=== PATIENT | female | born 1975 | race Caucasian/White ===

== ENCOUNTER 2017-10-03 13:29 | Emergency (ER) | payer SELFPAY ==
[2017-10-03 14:05] LABS: BASO # 0.1 10^3/uL (0.0-0.2); BASO % 0.6 % (0.0-1.0); EOS # 0.2 10^3/uL (0.0-0.50); EOS % 2.6 % (0.0-3.0); HEMATOCRIT 27.9 % (36.0-47.0); HEMOGLOBIN 7.9 g/dl (12.0-15.5); IMMATURE GRANULOCYTE % 0.3 % (0-3.0); LYMPH # 2.2 10^3/uL (1.5-4.5); LYMPH % 27.8 % (24.0-44.0); MEAN CORPUSCULAR HGB CONC 28.3 g/dl (32.0-36.5); MEAN CORPUSCULAR VOLUME 67.2 fl (80.0-96.0); MONO # 0.7 10^3/uL (0.0-0.8); MONO % 8.9 % (0.0-5.0); NEUTROPHILS # 4.7 10^3/uL (1.8-7.7); NEUTROPHILS % 59.8 % (36.0-66.0); PLATELET COUNT, AUTOMATED 243 10^3/uL (150-450); RED BLOOD COUNT 4.15 10^6/uL (4.00-5.40); WHITE BLOOD COUNT 7.8 10^3/uL (4.0-10.0)
[2017-10-03] MEDS: NS 500 ML IV (14:06)
[2017-10-03 14:17] LABS: INR 0.96; PROTHROMBIN TIME 12.9 SECONDS (12.1-14.4)
[2017-10-03 14:18] LABS: PARTIAL THROMBOPLASTIN TIME 31.1 SECONDS (25.4-37.6)
[2017-10-03 14:20] LABS: D-DIMER QUANT 305.8 ng/ml (<500)
[2017-10-03 14:31] LABS: ALBUMIN 3.6 GM/DL (3.2-5.2); ALKALINE PHOSPHATASE 43 U/L (45-117); ALT/SGPT 18 U/L (12-78); ANION GAP 8 MEQ/L (8-16); AST/SGOT 13 U/L (7-37); BILIRUBIN,DIRECT < 0.1 MG/DL (0.0-0.2); BILIRUBIN,TOTAL 0.2 MG/DL (0.2-1.0); BLOOD UREA NITROGEN 20 MG/DL (7-18); C REACTIVE PROTEIN QUANTITATIV < 0.30 MG/DL (0.00-0.30); CALCIUM LEVEL 8.4 MG/DL (8.5-10.1); CARBON DIOXIDE LEVEL 23 MEQ/L (21-32); CHLORIDE LEVEL 108 MEQ/L (98-107); CPK CREATINE PHOSPHOKINASE 65 U/L (26-192); CREATININE FOR GFR 0.84 MG/DL (0.55-1.30); GLOMERULAR FILTRATION RATE > 60.0 (>58); GLUCOSE, FASTING 93 MG/DL (70-100); LIPASE 140 U/L (73-393); POTASSIUM SERUM 3.9 MEQ/L (3.5-5.1); SODIUM LEVEL 139 MEQ/L (136-145); TOTAL PROTEIN 7.2 GM/DL (6.4-8.2); TROPONIN I < 0.02 NG/ML (< 0.10)
[2017-10-03 14:36] LABS: CK-MB VALUE MASS < 1.0 NG/ML (<3.6); FREE T4 0.94 NG/DL (0.76-1.46); MB/CK RELATIVE INDEX 1.53 (< OR =4)
[2017-10-03 14:39] LABS: HCG, SERUM QUANTITATIVE < 1.0 MIU/ML
[2017-10-03 16:49] LABS: FERRITIN 2 NG/ML (8-252); IRON (FE) 12 UG/DL (50-170); PERCENT SATURATION 3.1 % (13.2-45.0); TOTAL IRON BINDING CAPACITY 391 UG/DL (250-450)
[2017-10-03 17:04] LABS: IMMEDIATE SPIN CROSSMATCH 1 1
== END 2017-10-03 19:15 | disposition home or self-care (01) ==
LOC: M ED 13:29
DX: D64.9 Anemia, unspecified (principal); N92.0 Excessive and frequent menstruation with regular cycle; R00.0 Tachycardia, unspecified; Z79.2 Long term (current) use of antibiotics
CPT/HCPCS: 71046

== ENCOUNTER → 2018-05-23 | Outpatient (CLI) | payer BC ==
[~2018-05-23] MED LIST: AZIT-12 PO; FERR325T3 PO; VITA1TAB23 PO
[2018-05-23 17:42] LABS: BASO # 0.1 10^3/uL (0.0-0.2); BASO % 1.1 % (0.0-1.0); EOS # 0.3 10^3/uL (0.0-0.50); EOS % 4.6 % (0.0-3.0); HEMATOCRIT 38.6 % (36.0-47.0); LYMPH # 1.7 10^3/uL (1.5-4.5); LYMPH % 30.3 % (24.0-44.0); MEAN CORPUSCULAR HGB CONC 31.1 g/dl (32.0-36.5); MEAN CORPUSCULAR VOLUME 86.9 fl (80.0-96.0); MONO # 0.4 10^3/uL (0.0-0.8); MONO % 7.7 % (0.0-5.0); NEUTROPHILS # 3.2 10^3/uL (1.8-7.7); NEUTROPHILS % 56.1 % (36.0-66.0); PLATELET COUNT, AUTOMATED 267 10^3/uL (150-450); RED BLOOD COUNT 4.44 10^6/uL (4.00-5.40); WHITE BLOOD COUNT 5.7 10^3/uL (4.0-10.0)
[2018-05-23 18:09] LABS: ALBUMIN 3.6 GM/DL (3.2-5.2); ALT/SGPT 24 U/L (12-78); BILIRUBIN,TOTAL 0.2 MG/DL (0.2-1.0); BLOOD UREA NITROGEN 17 MG/DL (7-18); CALCIUM LEVEL 8.7 MG/DL (8.5-10.1); CARBON DIOXIDE LEVEL 30 MEQ/L (21-32); CHLORIDE LEVEL 106 MEQ/L (98-107); CREATININE FOR GFR 0.79 MG/DL (0.55-1.30); FREE T4 0.92 NG/DL (0.76-1.46); GLOMERULAR FILTRATION RATE > 60.0 (>58); GLUCOSE, FASTING 102 MG/DL (70-100); IRON (FE) 40 UG/DL (50-170); PERCENT SATURATION 14.3 % (13.2-45.0); POTASSIUM SERUM 3.8 MEQ/L (3.5-5.1); SODIUM LEVEL 141 MEQ/L (136-145); TOTAL IRON BINDING CAPACITY 279 UG/DL (250-450); TOTAL PROTEIN 6.2 GM/DL (6.4-8.2)
[2018-05-23 18:10] LABS: TOTAL 25(OH) VITAMIN D 28.2 NG/ML (30.0-100.0)
[2018-05-23 18:36] LABS: ERYTHROCYTE SEDIMENTATION RATE 5 mm/hr (0-20)
[2018-05-26 00:07] LABS: EBV VIRAL CAPSID AG IgG <18.0 U/mL (0.0-17.9); EBV VIRAL CAPSID AG IgM <36.0 U/mL (0.0-35.9)
== END ==
LOC: M WUC 16:17
PROVIDERS: ATTEND Physician Assistant
DX: R53.1 Weakness (principal)

== ENCOUNTER → 2018-06-21 | Outpatient (CLI) | payer BC ==
--- NOTE | 2018-06-22 06:00 | REP ---
Clinical: Menorrhagia Technique: Transabdominal pelvic ultrasound followed by transvaginal examination for better evaluation of the endometrium and adnexa with color Doppler evaluation of the ovaries. Findings: Bladder is unremarkable and measures 9.1 x 5.8 x 7.1 cm . Enlarged heterogeneous myomatous uterus measures 16.1 x 8.6 x 10.9 cm with 9.0 x 6.1 x 9.6 cm fundal fibroid having submucosal component. The endometrial complex measures 6.8 mm thickness. Bilateral ovaries are normal in appearance and vascularity without evidence for torsion. Right ovary measures 3.3 x 1.7 x 2.9 cm ; R I = 0.69 . Left ovary measures 3.7 x 2.7 x 4.3 cm ; R I = 0.49 . 3.2 x 2.4 x 2.5 cm left ovarian cyst. No pelvic fluid or adnexal mass lesion . Impression: 1. Enlarged myomatous uterus with large fundal fibroid having submucosal component. 2. 3.2 cm left ovarian cyst. Electronically Signed by Alex Haines MD 06/22/2018 05:51 A
== END ==
LOC: M RAD 12:38
PROVIDERS: ATTEND Obstetrics & Gynecology
DX: N83.202 Unspecified ovarian cyst, left side (principal); N85.2 Hypertrophy of uterus

== ENCOUNTER 2018-09-27 05:56 | Day surgery (SDC) | payer BC ==
[2018-09-27] VITALS (7 sets, daily range): BP systolic 101–118; BP diastolic 54–65
[~2018-09-27] VITALS: Ht 157.5 cm; Wt 77.6 kg
[~2018-09-27 05:56] MED LIST changes: +[UNRECOGNIZED DRUG - CODE] PO
[2018-09-27] MEDS ORDERED: LR 1,000 ML IV ONE (06:00)
[2018-09-27] MEDS ORDERED: LIDOCAINE 1% MDV 20ML VIAL SQ PRN (06:00)
[2018-09-27 06:30] LABS: HEMATOCRIT 34.7 % (36.0-47.0); HEMOGLOBIN 11.3 g/dl (12.0-15.5); MEAN CORPUSCULAR HEMOGLOBIN 29.8 pg (27.0-33.0); MEAN CORPUSCULAR HGB CONC 32.6 g/dl (32.0-36.5); MEAN CORPUSCULAR VOLUME 91.6 fl (80.0-96.0); PLATELET COUNT, AUTOMATED 188 10^3/uL (150-450); RED BLOOD COUNT 3.79 10^6/uL (4.00-5.40); WHITE BLOOD COUNT 4.9 10^3/uL (4.0-10.0)
[2018-09-27 06:37] LABS: URINE PREG TEST NEGATIVE (NEGATIVE)
[2018-09-27] MEDS ORDERED: METHYLENE BLUE 0.5% (5MG/ML) 10 ML AMP (PROVAYBLUE)(Q9968 PER 1MG) As Ordered ONE (07:09)
[2018-09-27] MEDS ORDERED: PROPOFOL 200 MG/20 ML VIAL As Ordered ONE (07:10)
[2018-09-27] MEDS ORDERED: ROCURONIUM BROMIDE 50 MG/5 ML VIAL As Ordered ONE ×2 (07:10→08:29)
[2018-09-27] MEDS ORDERED: fentaNYL 250 MCG/5 ML INJECTION (J3010) As Ordered ONE (07:10)
[2018-09-27] MEDS ORDERED: MIDAZOLAM INJ 2 MG/2 ML VIAL (J2250) As Ordered ONE (07:10)
[2018-09-27] MEDS ORDERED: LIDOCAINE 2% INJ 100 MG/5 ML SDV (FOR ANES.) As Ordered ONE (07:10)
[2018-09-27] MEDS ORDERED: dexameTHASONE 4 MG/ML 1ML VIAL (J1100) As Ordered ONE (07:10)
[2018-09-27] MEDS ORDERED: ONDANSETRON 4MG/2ML VIAL (J2405) As Ordered ONE (07:10)
[2018-09-27] MEDS ORDERED: SCOPOLAMINE 1MG TRANSDERMAL PATCH As Ordered ONE (07:20)
[2018-09-27] MEDS ORDERED: SCOPOLAMINE 1MG TRANSDERMAL PATCH TOP ONE (07:30)
[2018-09-27] MEDS ORDERED: SUGAMMADEX SODIUM 500 MG/5 ML VIAL (BRIDION) As Ordered ONE (08:12)
[2018-09-27] MEDS ORDERED: KETOROLAC 60 MG/2 ML VIAL (J1885) As Ordered ONE (08:12)
[2018-09-27] MEDS ORDERED: ACETAMINOPHEN 1000MG 100ML IV BTL (OFIRMEV) (J0131 PER 10MG) As Ordered ONE (08:12)
[2018-09-27] MEDS ORDERED: METOCLOPRAMIDE INJ 10MG/2ML VIAL (J2765) As Ordered ONE (08:14)
[2018-09-27] MEDS ORDERED: ePHEDrine SULFATE 25 MG/5 ML(5MG/ML) SYRINGE As Ordered ONE (08:39)
[2018-09-27] MEDS ORDERED: MORPHINE 1MG/ML IN 0.9% NACL 100ML IV BAG As Ordered ONE (10:38)
[2018-09-27] MEDS ORDERED: ONDANSETRON 4MG/2ML VIAL (J2405) IV PRN (11:30)
[2018-09-27] MEDS ORDERED: NALBUPHINE HCL 10 MG/ML AMP (J2300) IV PRN (11:30)
[2018-09-27] MEDS ORDERED: EPIDURAL/PCA KEYS XX PRN (11:30)
[2018-09-27] MEDS ORDERED: NALOXONE INJ 0.4 MG/1 ML VIAL (J2310) IV PRN (11:30)
[2018-09-27] MEDS ORDERED: fentaNYL 100 MCG/2 ML INJECTION (J3010) IV PRN (11:30)
[2018-09-27] MEDS ORDERED: LR 1,000 ML IV SCH (11:30)
[2018-09-27] MEDS ORDERED: diphenhydrAMINE INJ 50MG/ML VIAL (J1200) IV PRN (11:30)
[2018-09-27] MEDS ORDERED: PERCOCET 5MG/325MG TAB PO PRN (11:30)
[2018-09-27] MEDS ORDERED: IBUPROFEN 600 MG TAB PO PRN (11:30)
[2018-09-27] MEDS ORDERED: MORPHINE 1MG/ML IN 0.9% NACL 100ML IV BAG IV PRN (11:30)
[2018-09-27] MEDS: LR 1,000 ML IV SCH ×2 (14:20→21:33)
[2018-09-27] MEDS: IBUPROFEN 600 MG TAB PO PRN (20:01)
[2018-09-28] VITALS: BP 104/58
[2018-09-28 04:00] VITALS: BP 104/54
[2018-09-28] MEDS ORDERED: NORCO, ANEXSIA 5/325MG TABLET (HYDROcodone/ACETAMINOPHEN) PO PRN (06:00)
[2018-09-28] MEDS: IBUPROFEN 600 MG TAB PO PRN (06:45)
[2018-09-28 07:46] LABS: HEMATOCRIT 29.3 % (36.0-47.0); HEMOGLOBIN 9.5 g/dl (12.0-15.5); MEAN CORPUSCULAR HEMOGLOBIN 30.5 pg (27.0-33.0); MEAN CORPUSCULAR HGB CONC 32.4 g/dl (32.0-36.5); MEAN CORPUSCULAR VOLUME 94.2 fl (80.0-96.0); PLATELET COUNT, AUTOMATED 165 10^3/uL (150-450); RED BLOOD COUNT 3.11 10^6/uL (4.00-5.40); WHITE BLOOD COUNT 5.9 10^3/uL (4.0-10.0)
[2018-09-28 08:00] VITALS: BP 119/70
--- NOTE | 2018-10-01 12:58 | RO ---
DATE OF SURGERY: 09/27/2018 PREOPERATIVE DIAGNOSES AND INDICATION FOR SURGERY: Pain, bleeding, fibroids, and tender uterus. POSTOPERATIVE DIAGNOSES: Pain, bleeding, fibroids, and tender uterus. PROCEDURE: Robotic-assisted hysterectomy with right salpingectomy. SURGEON: Carmen Junior MD COST MANAGER: None. ANESTHESIA: General endotracheal anesthesia. SPECIMENS: Uterus and right tube. BRIEF DESCRIPTION OF PROCEDURE AND FINDINGS: Ruthy was brought to the operating room where sufficient general endotracheal anesthesia was induced. She was prepped, draped, and positioned in the usual sterile fashion with the uterine manipulator placed and the Ac catheter placed with the ability to backfill. Attention was then turned to the abdomen, where a transverse semilunar incision was made below the umbilicus. Sharp and blunt dissection were continued through the subcutaneous tissues to the level of the rectus fascia, which was transversely incised and secured with 0 Vicryl retention sutures, and the Selene cannula was then placed under direct visualization in open laparoscopic technique. CO2 insufflation was then begun, and the robotic camera was used to visualize the peritoneal cavity. There were some minor adhesions, previous surgical evidence, and then absence of the left tube consistent with the patient's previous surgery. Otherwise, the upper abdomen was normal in appearance. The uterus itself was enlarged and was expanded above the pelvic brim, as documented in the operative photos. This is a uterus that was weighed in the operating room (OR) at 543 grams after its removal. So, not a surprise that it was quite enlarged with fibroids as expected, two left-sided and one right-sided. Ports were placed under direct visualization. The robot was docked. The patient in Trendelenburg as is typical. I then turned my attention to working from the robotic port. Working with the robot, we first isolated the left ovary. Again, that left tube was already absent from the previous surgery. So, the uteroovarian suspensory ligament on the left side was carefully cauterized and transected, as was the left round ligament. Both of these were considerably shortened, most likely due to remodeling with the patient's large fibroids. We then carefully dissected the peritoneum down and created the left-hand side of the bladder flat. We were able to rotate the uterus and isolate the uterine vessels on the left side and cauterize but did not yet transect these. We then turned our attention to the right side, where a similar procedure was carried out. As we progressed, first isolating the right tube and it from the ovary and then the uteroovarian suspensory ligament, taking care not to injure the ovarian blood supply. We then cauterized and transected the right round ligament, as we worked down the right side, we then backfilled the bladder, confirmed it was well away from the field of dissection, as would be expected in this enlarged uterus. We then converted to the [id number] scope, so that I could have good visualization as we worked the bladder flap and the uterine vasculature. As expected, it was quite well developed for this fibroid uterus; but with careful steps, we were able to secure the uterine blood supply and then carefully make the colpotomy and work our way around the uterus, even though it was quite enlarged, using the __laparoscopic tenaculum through the medical assistant per diem's port, we were able to rotate the uterus and thus get access for the complete colpotomy and with the uterus from the ovaries, the right fallopian tube also so that it was going out with the uterus. The round ligament is transected. The broad ligament is dissected. The uterosacrals dissected. The bladder flat created so the uterine vasculature secured and the colpotomy completed and the uterus thus completely , we then delivered the cervix down into the vagina; and I turned my attention to working there. Working vaginally, we carefully held the cervix with two tenaculum and bivalved the cervix and then carefully using retractors and the medical assistant per diem, used the scalpel to carefully carve off a posterior left-side piece of cervix and fibroid and uterus. We then used the Super-Cut scissors to further transect the uterus so that we could deliver two portions of uterus vaginally, thus making it possible to deliver the rest of the uterus; and all of these pieces were then weighed and weighed 543 grams. A lap pad was then placed in the vagina to maintain pneumoperitoneum, and attention was returned to the robotic work. Working robotically, the vaginal cuff was closed with V-Loc suture and a running stitch with good approximation and hemostasis achieved. We irrigated the pelvis and confirmed good hemostatic closure and good approximation, and we were able to backfill the bladder and confirm again it was well away from the field of dissection; and the procedure was then ended. Estimated blood loss for the procedure about 150 mL. Fluid replacement was crystalloid. Again, specimen: Uterus and right tube. The weight of the uterus in the OR was 543 grams. COMPLICATIONS: None. CONDITION AND DISPOSITION: The patient tolerated the procedure well and was recovering in the recovery room in good condition. ASTRID
== END 2018-09-28 08:20 | disposition home or self-care (01) ==
LOC: M SDC 05:56 → M PED 11:50 → M SDC 09-28 08:20
PROVIDERS: ATTEND Obstetrics & Gynecology
DX: R10.2 Pelvic and perineal pain (principal); N93.9 Abnormal uterine and vaginal bleeding, unspecified; D25.0 Submucous leiomyoma of uterus; D64.9 Anemia, unspecified; F41.9 Anxiety disorder, unspecified
CPT/HCPCS: 36415; 58573; 84703; 85027; 86850; 86900; 86901; 88307; 96360; 96361; J0131; J0690; J1100; J1885; J2250; J2405; J2765; J3010

== ENCOUNTER → 2018-10-12 | Outpatient (REF) | payer BC ==
[2018-10-12 13:14] LABS: APPEARANCE, URINE CLEAR (CLEAR); BACTERIA, URINE AUTO 1+ (NEGATIVE); BILIRUBIN, URINE AUTO NEGATIVE (NEGATIVE); BLOOD, URINE BLOOD NEGATIVE (NEGATIVE); COLOR, URINE STRAW (YELLOW); GLUCOSE, URINE (UA) AUTO NEGATIVE (NEGATIVE); KETONE, URINE AUTO NEGATIVE (NEGATIVE); LEUKOCYTE ESTERASE, URINE AUTO 1+ (NEGATIVE); NITRITE, URINE AUTO NEGATIVE (NEGATIVE); PROTEIN, URINE AUTO NEGATIVE (NEGATIVE); RBC, URINE AUTO 2 /HPF (0-3); SPECIFIC GRAVITY URINE AUTO 1.003 (1.002-1.035); SQUAMOUS EPITHELIAL CELL UR AU 2 /HPF (0-6); UROBILINOGEN, URINE AUTO 0.2 mg/dL (0.0-2.0); WBC, URINE AUTO 1 /HPF (0-3)
== END ==
LOC: M LAB REF 12:02
PROVIDERS: ATTEND Obstetrics & Gynecology
DX: N39.0 Urinary tract infection, site not specified (principal)

== ENCOUNTER → 2019-06-10 | Outpatient (CLI) | payer BC ==
[2019-06-10 12:23] LABS: BASO % 0.8 % (0.0-1.0); EOS # 0.2 10^3/uL (0.0-0.5); EOS % 3.4 % (0.0-3.0); HEMATOCRIT 40.3 % (36.0-47.0); HEMOGLOBIN 13.7 g/dl (12.0-15.5); LYMPH # 1.5 10^3/uL (1.5-5.0); LYMPH % 29.3 % (24.0-44.0); MEAN CORPUSCULAR HEMOGLOBIN 30.7 pg (27.0-33.0); MEAN CORPUSCULAR VOLUME 90.4 fl (80.0-96.0); MONO # 0.5 10^3/uL (0.0-0.8); MONO % 8.6 % (0.0-5.0); NEUTROPHILS % 57.7 % (36.0-66.0); RED BLOOD COUNT 4.46 10^6/uL (4.00-5.40); WHITE BLOOD COUNT 5.2 10^3/uL (4.0-10.0)
[2019-06-10 12:38] LABS: CHOLESTEROL RISK RATIO 3.142 (<5)
== END ==
LOC: M WUC 09:58
PROVIDERS: ATTEND Obstetrics & Gynecology
DX: Z01.419 Encounter for gynecological examination (general) (routine) without abnormal findings (principal)

== ENCOUNTER → 2021-03-01 | Outpatient (CLI) | payer BC ==
[~2021-03-01] MED LIST changes: -VITA1TAB23 PO; +VITA250T26 PO
== END ==
LOC: M WUC 13:32
PROVIDERS: ATTEND Family Medicine
DX: R07.81 Pleurodynia (principal); M54.6 Pain in thoracic spine

== ENCOUNTER → 2021-06-29 | Outpatient (CLI) | payer BC | LOC: M PLAIMG 14:15 | PROVIDERS: ATTEND Physician Assistant Surgical | DX: M25.78 Osteophyte, vertebrae (principal); M50.222 Other cervical disc displacement at C5-C6 level; E04.1 Nontoxic single thyroid nodule ==

== ENCOUNTER → 2023-08-29 | Outpatient (CLI) | payer BC ==
[2023-08-29 08:50] LABS: BASO # 0.1 10^3/uL (0.0-0.2); BASO % 0.8 % (0.0-1.0); EOS # 0.3 10^3/uL (0.0-0.5); EOS % 5.1 % (0.0-3.0); HEMATOCRIT 41.3 % (36.0-47.0); LYMPH % 32.7 % (24.0-44.0); MEAN CORPUSCULAR HGB CONC 33.9 g/dl (32.0-36.5); MEAN CORPUSCULAR VOLUME 91.6 fl (80.0-96.0); MONO # 0.5 10^3/uL (0.0-0.8); MONO % 8.7 % (2.0-8.0); NEUTROPHILS # 3.2 10^3/uL (1.5-8.5); NEUTROPHILS % 52.2 % (36.0-66.0); PLATELET COUNT, AUTOMATED 216 10^3/uL (150-450); RED BLOOD COUNT 4.51 10^6/uL (4.00-5.40); WHITE BLOOD COUNT 6.1 10^3/uL (4.0-10.0)
[2023-08-29 08:55] LABS: ERYTHROCYTE SEDIMENTATION RATE 5 mm/hr (0-20)
[2023-08-29 09:23] LABS: C REACTIVE PROTEIN QUANTITATIV < 0.40 MG/DL (<1.0)
[2023-08-29 09:25] LABS: ALBUMIN 3.7 G/DL (3.2-5.2); ALKALINE PHOSPHATASE 50 U/L (46-116); ALT/SGPT 14 U/L (7.0-40); AST/SGOT < 8 U/L (<34); BILIRUBIN,TOTAL 0.6 MG/DL (0.3-1.2); BLOOD UREA NITROGEN 13 MG/DL (9-23); CALCIUM LEVEL 9.6 MG/DL (8.5-10.1); CARBON DIOXIDE LEVEL 28 MMOL/L (20-31); CHLORIDE LEVEL 107 MMOL/L (98-107); GLOMERULAR FILTRATION RATE > 60.0 (>58); GLUCOSE, FASTING 82 MG/DL (60-100); POTASSIUM SERUM 4.1 MMOL/L (3.5-5.1); SODIUM LEVEL 141 MMOL/L (136-145); TOTAL PROTEIN 6.4 G/DL (5.7-8.2)
[2023-08-29 09:27] LABS: FREE T4 0.99 NG/DL (0.89-1.76); THYROID STIMULATING HORMONE 1.643 uIU/ML (0.55-4.78)
== END ==
LOC: M LAB 08:23
PROVIDERS: ATTEND Student in an Organized Health Care Education/Training Program
DX: R53.83 Other fatigue (principal)

== ENCOUNTER → 2023-09-11 | Outpatient (CLI) | payer BC ==
[~2023-09-11] MED LIST changes: +GASTROGRAFIN SOLUTION 30ML As Ordered ONE; +ISOVUE-370 76% 100ML VIAL As Ordered ONE
== END ==
LOC: M RAD 11:43
PROVIDERS: ATTEND Nurse Practitioner Adult Health
DX: R10.9 Unspecified abdominal pain (principal)

== ENCOUNTER → 2024-12-02 | Outpatient (REF) | payer BC ==
[~2024-12-02] MED LIST changes: -GASTROGRAFIN SOLUTION 30ML As Ordered ONE; -ISOVUE-370 76% 100ML VIAL As Ordered ONE
== END ==
LOC: M LAB REF 21:31
PROVIDERS: ATTEND Physician Assistant Medical
DX: B34.0 Adenovirus infection, unspecified (principal)